=== PATIENT | female | born 1950 | race Caucasian/White ===

== ENCOUNTER 2024-05-05 23:21 | Inpatient (IN) | payer MEDICARE, BC ==
[~2024-05-05] VITALS: Ht 160 cm; Wt 93.0 kg
[2024-05-06] MEDS ORDERED: ONDANSETRON ODT 4 MG TAB.RAPDIS ONE (01:27)
[2024-05-06] MEDS ORDERED: HYDROMORPHONE 2 MG/1 ML DISP.SYRIN ONE ×2 (01:27→12:17)
[2024-05-06] MEDS ORDERED: CYCLOBENZAPRINE HCL 10 MG TABLET ONE (01:27)
[2024-05-06] MEDS: HYDROMORPHONE 1 MG/1 ML DISP.SYRIN IM ONE ×2 (01:31→07:29)
[2024-05-06] MEDS: ONDANSETRON ODT 4 MG TAB.RAPDIS SL ONE (01:32)
[2024-05-06] MEDS: CYCLOBENZAPRINE HCL 10 MG TABLET PO ONE (01:32)
[2024-05-06] MEDS ORDERED: HYDR-3980 PO (02:47)
[2024-05-06] MEDS ORDERED: CYCL10TA9 PO (02:47)
[2024-05-06] MEDS ORDERED: ONDA4TAB11 PO (02:47)
[2024-05-06] MEDS ORDERED: ICOS0.5C PO (07:18)
[2024-05-06] MEDS ORDERED: EMPA10TA PO (07:18)
[2024-05-06] MEDS ORDERED: ALLO100T PO (07:18)
[2024-05-06] MEDS ORDERED: METF-440 PO (07:18)
[2024-05-06] MEDS ORDERED: ASPI81TA31 PO (07:18)
[2024-05-06] MEDS ORDERED: SIMV10TA98 PO (07:18)
[2024-05-06] MEDS ORDERED: SEMA1PEN SQ (07:18)
[2024-05-06] MEDS ORDERED: FURO20TA4 PO (07:18)
[2024-05-06] MEDS ORDERED: IRBE300T19 PO (07:18)
[2024-05-06] MEDS ORDERED: HYDROMORPHONE 1 MG/1 ML DISP.SYRIN ONE (07:26)
[2024-05-06] MEDS ORDERED: ONDANSETRON 4 MG/2 ML VIAL ONE (12:17)
[2024-05-06] MEDS: HYDROMORPHONE 2 MG/1 ML DISP.SYRIN IV PRN (12:20)
[2024-05-06] MEDS: ONDANSETRON 4 MG/2 ML VIAL IV PRN (12:21)
[2024-05-06 12:47] LABS: BASOPHILS # (AUTO) 0.1 K/UL (0.0-0.2); BASOPHILS % (AUTO) 0.4 % (0.0-2.0); HEMATOCRIT 40.3 % (31.2-41.9); HEMOGLOBIN 13.3 g/dL (10.9-14.3); LYMPHOCYTES # (AUTO) 0.5 K/uL (0.8-4.8); LYMPHOCYTES % (AUTO) 3.4 % (20.5-51.5); MEAN CORPUSCULAR HEMOGLOBIN 27.8 uug (24.7-32.8); MEAN CORPUSCULAR HGB CONC 33 g/dL (32.3-35.6); MEAN CORPUSCULAR VOLUME 83.9 fL (75.5-95.3); MONOCYTES # (AUTO) 1.2 K/uL (0.1-1.30); MONOCYTES % (AUTO) 9.3 % (0.0-11.0); NEUTROPHILS # (AUTO) 11.6 K/uL (1.8-8.9); NEUTROPHILS % (AUTO) 86.9 % (38.5-71.5); PLATELET COUNT (AUTO) 197 K/uL (179-408); RED CELL DISTRIBUTION WIDTH 16.1 % (12.3-17.7); WHITE BLOOD COUNT (AUTO) 13.3 K/uL (3.8-11.8)
[2024-05-06 12:48] LABS: DIFFERENTIAL COMMENT 1
[2024-05-06 12:58] LABS: CALCIUM 9.4 mg/dL (8.5-10.1); CARBON DIOXIDE 25 mmol/L (21-32); CHLORIDE 102 mmol/L (98-107); CREATININE 1.3 mg/dL (0.6-1.3); GLUCOSE 159 mg/dL (74-106); POTASSIUM 4.3 mmol/L (3.5-5.1); SODIUM SERUM 137 mmol/L (136-145); UREA NITROGEN, BLOOD 33 mg/dL (7-18)
[2024-05-06 13:10] LABS: ALANINE AMINOTRANSFERASE 37 U/L (14-59); ALKALINE PHOSPHATASE 105 U/L (50-136); ASPARTATE AMINOTRANSFERASE 39 U/L (15-37); BILIRUBIN,TOTAL 1.4 mg/dL (0.2-1.0); NT-PRO BNP 1169 pg/mL (0-125); TOTAL PROTEIN, SERUM 7.7 g/dL (6.4-8.2)
[2024-05-06 13:14] LABS: ALBUMIN 2.7 g/dL (3.4-5.0); CREATINE KINASE, TOTAL 491 U/L (26-192)
[2024-05-06] MEDS ORDERED: TEMAZEPAM 15 MG CAPSULE PO PRN ×2 (15:30→15:45)
[2024-05-06] MEDS ORDERED: ONDANSETRON 4 MG/2 ML VIAL IV PRN (15:30)
[2024-05-06] MEDS: ACETAMINOPHEN 325 MG TABLET PO PRN (16:29)
[2024-05-06 16:31] VITALS: BP 155/77; TEMP 98; O2SAT 97
[2024-05-06] MEDS: HYDROCODONE/APAP 5-325MG TABLET PO PRN (17:20)
[2024-05-06 18:00] VITALS: O2SAT 96
[2024-05-06] MEDS ORDERED: ALBUTEROL SULFATE 2.5 MG/3 ML NEBU NEB PRN (19:15)
[2024-05-06] MEDS ORDERED: DEXTROSE 50% 50 ML DISP.SYRIN IV PRN (19:15)
[2024-05-06 20:08] VITALS: BP 125/59; TEMP 97.7; O2SAT 91
[2024-05-06] MEDS ORDERED: DOCUSATE SODIUM 250 MG CAPSULE PO SCH (21:00)
[2024-05-06] MEDS: SIMVASTATIN 10 MG TABLET PO SCH (21:40)
[2024-05-06] MEDS: DOCUSATE SODIUM 100 MG CAPSULE PO SCH (21:41)
[2024-05-06] MEDS: DEXAMETHASONE SOD PHOSPHATE 4 MG INJ IV SCH (23:02)
[2024-05-06] MEDS: CARISOPRODOL 350 MG TABLET PO SCH (23:20)
[2024-05-06] MEDS: BLOOD SUGAR DIAGNOSTIC 1 EACH STRIP VI SCH (23:50)
[2024-05-07] MEDS: INSULIN REGULAR, HUMAN 1000 UNIT/10 ML VIAL SQ PRN (00:30)
[2024-05-07 04:15] LABS: *BILIRUBIN,URIN 1+ (NEGATIVE); *BLOOD, URINE 3+ (NEGATIVE); *CLARITY,URINE CLOUDY (CLEAR); *COLOR,URINE DARK YELLOW (YELLOW); *KETONES,URINE NEGATIVE (NEGATIVE); *PROTEIN,URINE 3+ (NEGATIVE); *UROBILINOGEN,URINE 0.2 E.U./dl (NORMAL); LEUKOCYTE ESTERASE ,URINE NEGATIVE (NEGATIVE); NITRITE, URINE NEGATIVE (NEGATIVE); UGLUCOSE 3+ (NEGATIVE)
[2024-05-07 04:36] VITALS: BP 132/70; TEMP 97.6; O2SAT 92
[2024-05-07 04:36] LABS: RBC,URINE 20-50 /HPF (0-3); WBC,URINE 0-3 /HPF (0-3)
[2024-05-07 04:37] LABS: BACTERIA,URINE FEW /HPF (NONE SEEN); MUCUS,URINE FEW /LPF (0-FEW); SQUAMOUS EPITHELIAL CELL,UR FEW /HPF (NONE SEEN); URINE AMORPHOUS PHOSPHATES FEW /HPF
[2024-05-07] MEDS: PANTOPRAZOLE SODIUM 40 MG TABLET.DR PO SCH (06:27)
[2024-05-07] MEDS: MAGNESIUM HYDROXIDE 30 ML LIQUID UDC PO PRN (06:29)
[2024-05-07 07:45] LABS: BASOPHILS % (AUTO) 0.2 % (0.0-2.0); HEMATOCRIT 40.9 % (31.2-41.9); HEMOGLOBIN 13.5 g/dL (10.9-14.3); LYMPHOCYTES # (AUTO) 0.3 K/uL (0.8-4.8); LYMPHOCYTES % (AUTO) 2.4 % (20.5-51.5); MEAN CORPUSCULAR HEMOGLOBIN 27.9 uug (24.7-32.8); MEAN CORPUSCULAR HGB CONC 33 g/dL (32.3-35.6); MEAN CORPUSCULAR VOLUME 84.4 fL (75.5-95.3); MONOCYTES % (AUTO) 7.5 % (0.0-11.0); NEUTROPHILS # (AUTO) 11.6 K/uL (1.8-8.9); NEUTROPHILS % (AUTO) 89.9 % (38.5-71.5); PLATELET COUNT (AUTO) 191 K/uL (179-408); RED BLOOD CELL COUNT(AUTO) 4.85 MIL/uL (3.63-4.92); RED CELL DISTRIBUTION WIDTH 16.3 % (12.3-17.7); WHITE BLOOD COUNT (AUTO) 12.9 K/uL (3.8-11.8)
[2024-05-07 07:55] LABS: DIFFERENTIAL COMMENT 1
[2024-05-07 08:03] LABS: ALANINE AMINOTRANSFERASE 58 U/L (14-59); ALKALINE PHOSPHATASE 124 U/L (50-136); ASPARTATE AMINOTRANSFERASE 42 U/L (15-37); BILIRUBIN,TOTAL 1.6 mg/dL (0.2-1.0); CALCIUM 10.1 mg/dL (8.5-10.1); CARBON DIOXIDE 26 mmol/L (21-32); CHLORIDE 100 mmol/L (98-107); CREATININE 1.3 mg/dL (0.6-1.3); GLUCOSE 162 mg/dL (74-106); MAGNESIUM 2.8 mg/dL (1.8-2.4); PHOSPHOROUS 4.1 mg/dL (2.5-4.9); POTASSIUM 5.3 mmol/L (3.5-5.1); SODIUM SERUM 136 mmol/L (136-145); TOTAL PROTEIN, SERUM 8.2 g/dL (6.4-8.2); UREA NITROGEN, BLOOD 42 mg/dL (7-18); URIC ACID 6.2 mg/dL (2.6-6.0)
[2024-05-07 08:17] LABS: IRON, SERUM 15 ug/dL (50-175)
[2024-05-07] MEDS: FUROSEMIDE 20 MG TABLET PO SCH (08:20)
[2024-05-07] MEDS: ASPIRIN EC 81 MG TABLET.DR PO SCH (08:20)
[2024-05-07] MEDS: METFORMIN HCL 500 MG TABLET PO SCH (08:21)
[2024-05-07] MEDS: ENOXAPARIN SODIUM 30 MG/0.3 ML DISP.SYRIN SUBCUT SCH (08:28)
[2024-05-07] MEDS: ALLOPURINOL 100 MG TABLET PO SCH (08:33)
[2024-05-07 08:34] LABS: THYROID STIMULATING HORMONE 0.895 mIU/mL (0.358-3.740)
[2024-05-07] MEDS: HYDROMORPHONE 1 MG/1 ML DISP.SYRIN IV PRN (08:44)
[2024-05-07] MEDS ORDERED: ASPIRIN 81 MG TAB.CHEW PO SCH (09:00)
[2024-05-07] MEDS ORDERED: Medication Not On Formulary EA (Empagliflozin (Jardiance) 10 MG) PO SCH (09:00)
[2024-05-07] MEDS: EMPAGLIFLOZIN 10 MG TABLET PO SCH (09:46)
[2024-05-07 10:10] LABS: ALBUMIN 2.5 g/dL (3.4-5.0)
[2024-05-07 10:11] LABS: CREATINE KINASE, TOTAL 283 U/L (26-192)
[2024-05-07] MEDS ORDERED: SWABABLE VALVE TRANSFER SET EA MC ONE (11:18)
[2024-05-07] MEDS ORDERED: IV NORMAL SALINE 250 ML IV ONE (11:18)
[2024-05-07] MEDS ORDERED: IOHEXOL 350 100 ML INFUS..BTL ONE (11:18)
[2024-05-07 12:32] VITALS: BP 139/74; TEMP 97.3; O2SAT 92
[2024-05-07 16:00] VITALS: BP 153/83; TEMP 97.6; O2SAT 92
[2024-05-07] MEDS: FUROSEMIDE 20 MG/2 ML VIAL IV ONE (17:14)
[2024-05-08] MEDS ORDERED: METFORMIN HCL 500 MG TABLET PO SCH (12:00)
[2024-05-08] MEDS ORDERED: ENOX80DI SQ (18:08)
[2024-05-08] MEDS ORDERED: BRIM10DR6 OP (18:08)
[2024-05-08] MEDS ORDERED: BETA1TAB19 PO (18:08)
[2024-05-08] MEDS ORDERED: RXENO XX (18:08)
[2024-05-08] MEDS ORDERED: PIPE3.379 IV (18:08)
[2024-05-08] MEDS ORDERED: EMPA10TA PO (18:08)
[2024-05-08] MEDS ORDERED: BACL10TA PO (18:08)
[2024-05-08] MEDS ORDERED: ACET325T53 PO (18:08)
[2024-05-08] MEDS ORDERED: HYDR1DIS2 IV (18:08)
[2024-05-08] MEDS ORDERED: HYDR-3972 PO (18:08)
[2024-05-08] MEDS ORDERED: ALLO100T PO (18:08)
[2024-05-08] MEDS ORDERED: PANT40TA49 PO (18:08)
[2024-05-08] MEDS ORDERED: AMIODARONE DRIP IV (18:08)
[2024-05-08] MEDS ORDERED: RXVAN XX (18:08)
[2024-05-08] MEDS ORDERED: ONDA4VIA23 IV (18:08)
[2024-05-09] MEDS ORDERED: METFORMIN HCL 500 MG TABLET PO SCH (12:00)
== END 2024-05-07 18:00 | disposition short-term general hospital, planned readmission (82) | DRG 551 ==
LOC: ER 23:44 → TRANSITION 05-06 09:15 → MEDSURG3 05-06 13:29 → SA1 05-06 15:02 → MEDSURG1 05-06 16:22
PROVIDERS: ADMIT Internal Medicine; ATTEND Internal Medicine
DX: M51.16 Intervertebral disc disorders with radiculopathy, lumbar region (principal); N17.0 Acute kidney failure with tubular necrosis; E44.0 Moderate protein-calorie malnutrition; M62.82 Rhabdomyolysis; R17 Unspecified jaundice; M54.50 Low back pain, unspecified; M62.830 Muscle spasm of back; E88.09 Other disorders of plasma-protein metabolism, not elsewhere classified; E66.9 Obesity, unspecified; Z68.36 Body mass index [BMI] 36.0-36.9, adult; H35.30 Unspecified macular degeneration; L30.9 Dermatitis, unspecified; Z85.528 Personal history of other malignant neoplasm of kidney; M10.9 Gout, unspecified; E11.65 Type 2 diabetes mellitus with hyperglycemia; E78.5 Hyperlipidemia, unspecified; I10 Essential (primary) hypertension; R29.6 Repeated falls; Z90.710 Acquired absence of both cervix and uterus; Z96.651 Presence of right artificial knee joint; R10.30 Lower abdominal pain, unspecified; Z79.84 Long term (current) use of oral hypoglycemic drugs
CPT/HCPCS: 36415; 70450; 71045; 71275; 72100; 72131; 83550; 83735; 84100; 84443; 84484; 84550; 85025; 85610; 86140; 93005; 94760; A4606; A4663; G0378; J1100; J1171; J1650; J1815; J1940; J2405; J8499; Q0162; Q9967

== ENCOUNTER 2024-05-07 19:07 | Inpatient (IN) | payer MEDICARE, BC ==
[~2024-05-07] VITALS: Ht 160 cm; Wt 81.6 kg
[~2024-05-07 19:07] MED LIST: ALLO100T PO; ASPI81TA31 PO; EMPA10TA PO; FURO20TA4 PO; IRBE300T19 PO; METF-440 PO; SEMA1PEN SQ; SIMV10TA98 PO
[2024-05-07] MEDS ORDERED: ONDANSETRON 4 MG/2 ML VIAL ONE (19:55)
[2024-05-07] MEDS ORDERED: HYDROMORPHONE 1 MG/1 ML DISP.SYRIN ONE (19:56)
[2024-05-07] MEDS: ONDANSETRON 4 MG/2 ML VIAL IV ONE (19:59)
[2024-05-07] MEDS: HYDROMORPHONE 1 MG/1 ML DISP.SYRIN IV ONE (20:01)
[2024-05-07] MEDS: VANCOMYCIN HCL IV ONE (21:30)
[2024-05-07] MEDS: [UNRECOGNIZED DRUG - OTHER] IV ONE (21:30)
[2024-05-07] MEDS: IV NORMAL SALINE 500 ML IV ONE (22:00)
[2024-05-07] MEDS ORDERED: PIPERACILLIN SODIUM/TAZOBACTAM 3.375 G in IV DEXTROSE 5% 50 ML IV SCH (22:00)
[2024-05-07] MEDS ORDERED: PIPERACILLIN/TAZOBACTAM/D5W 50 ML IV ONE (22:16)
[2024-05-07] MEDS: PIPERACILLIN SODIUM/TAZOBACTAM 3.375 G in IV DEXTROSE 5% 50 ML IV ONE (22:18)
[2024-05-07] MEDS ORDERED: AMIODARONE HCL 150 MG/3 ML VIAL IV ONE ×2 (22:42→23:10)
[2024-05-07] MEDS: AMIODARONE HCL IV 150 MG in IV DEXTROSE 5% 100 ML IV ONE (22:48)
[2024-05-07] MEDS ORDERED: KETAMINE HCL 500 MG/5 ML VIAL ONE (22:51)
[2024-05-07] MEDS ORDERED: DILTIAZEM HCL 25 MG IV ONE (22:56)
[2024-05-07] MEDS: AMIODARONE HCL IV 450 MG in IV DEXTROSE 5% 250 ML IV PRN (23:56)
[2024-05-08] MEDS: KETAMINE HCL 500 MG/10 ML INJ IV ONE (00:01)
[2024-05-08] MEDS ORDERED: ENOXAPARIN SODIUM 80 MG/0.8 ML DISP.SYRIN SQ ONE (01:28)
[2024-05-08] MEDS: ENOXAPARIN SODIUM 80 MG/0.8 ML DISP.SYRIN SQ ONE (01:30)
[2024-05-08] MEDS ORDERED: VANCOMYCIN 1000 MG VIAL ONE (01:37)
[2024-05-08] MEDS ORDERED: VANCOMYCIN HCL 500 MG VIAL ONE (01:38)
[2024-05-08] MEDS: VANCOMYCIN HCL IV ONE (01:46)
[2024-05-08] MEDS: [UNRECOGNIZED DRUG - OTHER] IV ONE (01:46)
[2024-05-08 03:01] VITALS: BP 131/70; TEMP 99.2; O2SAT 93
[2024-05-08 04:32] VITALS: BP 133/59; TEMP 97.4; O2SAT 95
[2024-05-08] MEDS: HYDROCODONE/APAP 10-325 MG TABLET PO ONE (05:18)
[2024-05-08] MEDS: MAGNESIUM HYDROXIDE 30 ML LIQUID UDC PO ONE (05:18)
[2024-05-08] MEDS ORDERED: PIPERACILLIN/TAZOBACTAM/D5W 50 ML IV ONE (05:42)
[2024-05-08] MEDS: BACLOFEN 10 MG TABLET PO SCH (06:02)
[2024-05-08] MEDS: PIPERACILLIN SODIUM/TAZOBACTAM 3.375 G in IV DEXTROSE 5% 50 ML IV ONE (06:03)
[2024-05-08 06:51] LABS: BASOPHILS % (AUTO) 0.2 % (0.0-2.0); EOSINOPHILS % (AUTO) 0.1 % (0.0-7.0); HEMATOCRIT 38.4 % (31.2-41.9); HEMOGLOBIN 12.9 g/dL (10.9-14.3); LYMPHOCYTES # (AUTO) 0.3 K/uL (0.8-4.8); LYMPHOCYTES % (AUTO) 2.8 % (20.5-51.5); MEAN CORPUSCULAR HEMOGLOBIN 28.6 uug (24.7-32.8); MEAN CORPUSCULAR HGB CONC 34 g/dL (32.3-35.6); MEAN CORPUSCULAR VOLUME 84.9 fL (75.5-95.3); MONOCYTES % (AUTO) 0.4 % (0.0-11.0); NEUTROPHILS # (AUTO) 11.1 K/uL (1.8-8.9); NEUTROPHILS % (AUTO) 96.5 % (38.5-71.5); PLATELET COUNT (AUTO) 183 K/uL (179-408); RED BLOOD CELL COUNT(AUTO) 4.52 MIL/uL (3.63-4.92); RED CELL DISTRIBUTION WIDTH 16.4 % (12.3-17.7); WHITE BLOOD COUNT (AUTO) 11.5 K/uL (3.8-11.8)
[2024-05-08 07:11] LABS: DIFFERENTIAL COMMENT 1
[2024-05-08 07:14] LABS: ALANINE AMINOTRANSFERASE 93 U/L (14-59); ALBUMIN 1.9 g/dL (3.4-5.0); ALKALINE PHOSPHATASE 116 U/L (50-136); ASPARTATE AMINOTRANSFERASE 103 U/L (15-37); BILIRUBIN,TOTAL 1.5 mg/dL (0.2-1.0); CALCIUM 8.8 mg/dL (8.5-10.1); CARBON DIOXIDE 22 mmol/L (21-32); CHLORIDE 99 mmol/L (98-107); CREATININE 1.5 mg/dL (0.6-1.3); GLUCOSE 243 mg/dL (74-106); MAGNESIUM 2.7 mg/dL (1.8-2.4); PHOSPHOROUS 2.1 mg/dL (2.5-4.9); POTASSIUM 4.4 mmol/L (3.5-5.1); SODIUM SERUM 133 mmol/L (136-145); TOTAL PROTEIN, SERUM 6.9 g/dL (6.4-8.2); UREA NITROGEN, BLOOD 45 mg/dL (7-18)
[2024-05-08 07:34] LABS: LACTIC ACID 2.7 mmol/L (0.4-2.0)
[2024-05-08] MEDS ORDERED: PIPERACILLIN SODIUM/TAZOBACTAM 3.375 G in IV DEXTROSE 5% 50 ML IV SCH (08:30)
[2024-05-08 08:39] VITALS: BP 124/62; TEMP 97.7; O2SAT 92
[2024-05-08] MEDS ORDERED: ONDANSETRON 4 MG/2 ML VIAL IV PRN (08:45)
[2024-05-08] MEDS ORDERED: HYDROMORPHONE 1 MG/1 ML DISP.SYRIN IV PRN (08:45)
[2024-05-08] MEDS ORDERED: Medication Not On Formulary EA (Empagliflozin (Jardiance) 10 MG) PO SCH (09:00)
[2024-05-08] MEDS: ASPIRIN 81 MG TAB.CHEW PO SCH (09:00)
[2024-05-08] MEDS ORDERED: ALLOPURINOL 100 MG TABLET PO SCH (09:00)
[2024-05-08] MEDS: EMPAGLIFLOZIN 10 MG TABLET PO SCH (09:01)
[2024-05-08] MEDS: ALLOPURINOL 100 MG TABLET PO SCH (09:01)
[2024-05-08] MEDS: IV NS 1000 ML 1,000 ML IV PRN (10:23)
[2024-05-08] MEDS: BRIMONIDINE 0.2% OPHT DROP 10 ML BOTTLE OP SCH (12:31)
[2024-05-08] MEDS: BETA CAROTENE/VIT C & E/MIN TABLET PO SCH (12:33)
[2024-05-08] MEDS: HYDROCODONE/APAP 5-325MG TABLET PO PRN (13:33)
[2024-05-08] MEDS: PIPERACILLIN SODIUM/TAZOBACTAM 3.375 G in IV DEXTROSE 5% 50 ML IV SCH (13:45)
[2024-05-08 15:34] VITALS: TEMP 97.9
[2024-05-08] MEDS: CARISOPRODOL 350 MG TABLET PO PRN (16:31)
[2024-05-08] MEDS: NEUTRA PHOS PACKET PO ONE (16:49)
[2024-05-08] MEDS ORDERED: ENOX80DI SQ (18:08)
[2024-05-08] MEDS ORDERED: EMPA10TA PO (18:08)
[2024-05-08] MEDS ORDERED: HYDR-3972 PO (18:08)
[2024-05-08] MEDS ORDERED: BACL10TA PO (18:08)
[2024-05-08] MEDS ORDERED: PANT40TA49 PO (18:08)
[2024-05-08] MEDS ORDERED: HYDR1DIS2 IV (18:08)
[2024-05-08] MEDS ORDERED: AMIODARONE DRIP IV (18:08)
[2024-05-08] MEDS ORDERED: PIPE3.379 IV (18:08)
[2024-05-08] MEDS ORDERED: BRIM10DR6 OP (18:08)
[2024-05-08] MEDS ORDERED: ALLO100T PO (18:08)
[2024-05-08] MEDS ORDERED: ONDA4VIA23 IV (18:08)
[2024-05-08] MEDS ORDERED: RXENO XX (18:08)
[2024-05-08] MEDS ORDERED: ACET325T53 PO (18:08)
[2024-05-08] MEDS ORDERED: BETA1TAB19 PO (18:08)
[2024-05-08] MEDS ORDERED: RXVAN XX (18:08)
[2024-05-08 20:00] VITALS: BP_SYST 140; BP_SYST 176; BP_DIAS 70; BP_DIAS 76; TEMP 97.8; O2SAT 93
[2024-05-08] MEDS ORDERED: ALBUTEROL SULFATE 2.5 MG/ 0.5 ML NEBU NEB PRN (20:30)
[2024-05-08] MEDS: hydrALAZINE HCL 25 MG TABLET PO PRN (20:43)
[2024-05-08] MEDS: SIMVASTATIN 10 MG TABLET PO SCH (20:43)
[2024-05-08] MEDS: ENOXAPARIN SODIUM 80 MG/0.8 ML DISP.SYRIN SQ SCH (20:45)
[2024-05-08] MEDS: HYDROMORPHONE 1 MG/1 ML DISP.SYRIN IV PRN (22:50)
[2024-05-08] MEDS: MIRALAX 17 GM POWD.PACK PO PRN (22:50)
[2024-05-09] VITALS (8 sets, daily range): BP systolic 138–167; BP diastolic 64–89; TEMP 97.7–98.8; O2SAT 92–95
[2024-05-09] MEDS: PANTOPRAZOLE SODIUM 40 MG TABLET.DR PO SCH (06:37)
[2024-05-09 08:29] LABS: ABG BASE EXCESS -2.7 mmol/L (-2.0-3.0); ABG HCO3 19.2 mmol/L (21.0-28.0); ABG PCO2 26.5 mmHg (32.0-45.0); ABG PH 7.478 (7.350-7.450); ABG PO2 57.7 mmHg (83.0-108.0); ABG SITE RIGHT BRACHIAL; ABG TOTAL HEMOGLOBIN 14.2 G/dL (12.0-16.0); AaDO2 92.3 mmHg; COHb 1.3 % (0.5-1.5); O2Hb 89.8 % (94.0-98.0)
[2024-05-09 09:08] LABS: BASOPHILS % (AUTO) 0.2 % (0.0-2.0); EOSINOPHILS % (AUTO) 0.2 % (0.0-7.0); HEMATOCRIT 40.1 % (31.2-41.9); HEMOGLOBIN 12.8 g/dL (10.9-14.3); LYMPHOCYTES # (AUTO) 0.5 K/uL (0.8-4.8); MEAN CORPUSCULAR HEMOGLOBIN 27.5 uug (24.7-32.8); MEAN CORPUSCULAR HGB CONC 32 g/dL (32.3-35.6); MONOCYTES # (AUTO) 1.8 K/uL (0.1-1.30); MONOCYTES % (AUTO) 10.2 % (0.0-11.0); NEUTROPHILS # (AUTO) 15.2 K/uL (1.8-8.9); NEUTROPHILS % (AUTO) 86.4 % (38.5-71.5); PLATELET COUNT (AUTO) 219 K/uL (179-408); RED BLOOD CELL COUNT(AUTO) 4.66 MIL/uL (3.63-4.92); RED CELL DISTRIBUTION WIDTH 16.5 % (12.3-17.7); WHITE BLOOD COUNT (AUTO) 17.6 K/uL (3.8-11.8)
[2024-05-09 09:10] LABS: DIFFERENTIAL COMMENT 1
[2024-05-09] MEDS: AMIODARONE HCL 200 MG TABLET PO SCH (09:13)
[2024-05-09] MEDS: VALSARTAN 160 MG TABLET PO SCH (09:14)
[2024-05-09] MEDS: APIXABAN 2.5 MG TABLET PO SCH (09:15)
[2024-05-09] MEDS ORDERED: NALOXONE HCL 0.4 MG/ML AMPUL IV PRN (10:45)
[2024-05-09] MEDS: DIAZEPAM 10 MG/2 ML DISP.SYRIN IV ONE (10:50)
[2024-05-09] MEDS: OXYCODONE HCL 10 MG TAB.SR.12H PO SCH (11:00)
[2024-05-09 11:06] LABS: ALANINE AMINOTRANSFERASE 74 U/L (14-59); ALBUMIN 1.8 g/dL (3.4-5.0); ALKALINE PHOSPHATASE 116 U/L (50-136); ASPARTATE AMINOTRANSFERASE 68 U/L (15-37); BILIRUBIN,TOTAL 1.8 mg/dL (0.2-1.0); CALCIUM 8.9 mg/dL (8.5-10.1); CARBON DIOXIDE 18 mmol/L (21-32); CHLORIDE 99 mmol/L (98-107); CREATININE 0.8 mg/dL (0.6-1.3); GLUCOSE 153 mg/dL (74-106); MAGNESIUM 2.2 mg/dL (1.8-2.4); PHOSPHOROUS 2.7 mg/dL (2.5-4.9); POTASSIUM 3.7 mmol/L (3.5-5.1); SODIUM SERUM 135 mmol/L (136-145); TOTAL PROTEIN, SERUM 7.4 g/dL (6.4-8.2); UREA NITROGEN, BLOOD 30 mg/dL (7-18)
[2024-05-09 11:42] LABS: *BILIRUBIN,URIN NEGATIVE (NEGATIVE); *BLOOD, URINE 3+ (NEGATIVE); *CLARITY,URINE CLEAR (CLEAR); *COLOR,URINE YELLOW (YELLOW); *KETONES,URINE 1+ (NEGATIVE); *UROBILINOGEN,URINE 0.2 E.U./dl (NORMAL); LEUKOCYTE ESTERASE ,URINE NEGATIVE (NEGATIVE); NITRITE, URINE NEGATIVE (NEGATIVE); PH,URINE 5.5 (5.0-8.0)
[2024-05-09 12:31] LABS: *PROTEIN,URINE 3+ (NEGATIVE); UGLUCOSE 3+ (NEGATIVE)
[2024-05-09 12:50] LABS: BACTERIA,URINE MANY /HPF (NONE SEEN); RBC,URINE 80-100 /HPF (0-3); SQUAMOUS EPITHELIAL CELL,UR FEW /HPF (NONE SEEN)
[2024-05-09] MEDS: VANCOMYCIN IV 1,000 MG in IV DEXTROSE 5% 250 ML IV SCH ×2 (14:00→16:00)
[2024-05-09] MEDS ORDERED: AMIODARONE HCL 150 MG/3 ML VIAL IV ONE (23:04)
[2024-05-09] MEDS: AMIODARONE HCL IV 150 MG in IV DEXTROSE 5% 100 ML IV ONE (23:22)
[2024-05-09] MEDS: KETOROLAC TROMETHAMINE 15 MG INJ IVP ONE (23:47)
[2024-05-10] MEDS: AMIODARONE HCL IV 450 MG in IV DEXTROSE 5% 250 ML IV PRN (00:02)
[2024-05-10 00:04] VITALS: BP 118/68; TEMP 98.4; O2SAT 95
[2024-05-10] MEDS: HYDROMORPHONE 1 MG/1 ML DISP.SYRIN IV ONE (01:15)
[2024-05-10] MEDS ORDERED: ALBUTEROL SULFATE 2.5 MG/3 ML NEBU NEB PRN (05:15)
[2024-05-10 06:00] VITALS: BP 147/80; TEMP 97.6; O2SAT 95
[2024-05-10 07:36] VITALS: BP 125/51; TEMP 97.7; O2SAT 94
[2024-05-10 08:02] LABS: BASOPHILS # (AUTO) 0.1 K/UL (0.0-0.2); BASOPHILS % (AUTO) 0.4 % (0.0-2.0); EOSINOPHILS # (AUTO) 0.1 K/uL (0.0-0.7); EOSINOPHILS % (AUTO) 0.3 % (0.0-7.0); HEMATOCRIT 38.5 % (31.2-41.9); HEMOGLOBIN 12.8 g/dL (10.9-14.3); LYMPHOCYTES # (AUTO) 0.9 K/uL (0.8-4.8); LYMPHOCYTES % (AUTO) 4.6 % (20.5-51.5); MEAN CORPUSCULAR HEMOGLOBIN 27.6 uug (24.7-32.8); MEAN CORPUSCULAR HGB CONC 33 g/dL (32.3-35.6); MEAN CORPUSCULAR VOLUME 82.9 fL (75.5-95.3); MONOCYTES # (AUTO) 1.3 K/uL (0.1-1.30); MONOCYTES % (AUTO) 6.7 % (0.0-11.0); NEUTROPHILS # (AUTO) 17.6 K/uL (1.8-8.9); PLATELET COUNT (AUTO) 274 K/uL (179-408); RED BLOOD CELL COUNT(AUTO) 4.64 MIL/uL (3.63-4.92)
[2024-05-10 08:06] LABS: ALANINE AMINOTRANSFERASE 72 U/L (14-59); ALBUMIN 1.6 g/dL (3.4-5.0); ALKALINE PHOSPHATASE 114 U/L (50-136); ASPARTATE AMINOTRANSFERASE 40 U/L (15-37); BILIRUBIN,DIRECT 1.2 mg/dL (0.0-0.2); BILIRUBIN,TOTAL 1.7 mg/dL (0.2-1.0); CALCIUM 9.3 mg/dL (8.5-10.1); CARBON DIOXIDE 26 mmol/L (21-32); CHLORIDE 101 mmol/L (98-107); GLUCOSE 196 mg/dL (74-106); MAGNESIUM 2.3 mg/dL (1.8-2.4); PHOSPHOROUS 3.7 mg/dL (2.5-4.9); POTASSIUM 3.1 mmol/L (3.5-5.1); SODIUM SERUM 138 mmol/L (136-145); TOTAL PROTEIN, SERUM 6.9 g/dL (6.4-8.2); UREA NITROGEN, BLOOD 32 mg/dL (7-18)
[2024-05-10 08:13] LABS: DIFFERENTIAL COMMENT 1
[2024-05-10 08:32] LABS: C-REACTIVE PROTEIN 30.76 mg/dL (0.00-0.30)
[2024-05-10 08:36] LABS: CREATINE KINASE, TOTAL 168 U/L (26-192)
[2024-05-10] MEDS ORDERED: APIXABAN 2.5 MG TABLET PO SCH (09:00)
[2024-05-10] MEDS: APIXABAN 5 MG TABLET PO SCH (09:03)
[2024-05-10] MEDS: POTASSIUM CHLORIDE 50 ML IV SCH (09:04)
[2024-05-10] MEDS ORDERED: DEXTROSE 50% 50 ML DISP.SYRIN IV PRN (09:15)
[2024-05-10] MEDS ORDERED: POTASSIUM CHLORIDE 20 MEQ TAB.PRT.SR PO ONE (09:15)
[2024-05-10] MEDS: DILTIAZEM HCL 25 MG IV IV ONE (10:36)
[2024-05-10 11:28] LABS: BAND % (MANUAL) 7 % (0-10); LYMPHOCYTES % (MANUAL) 5 % (20-40); NEUTROPHILS % (MANUAL) 76 % (42-75)
[2024-05-10 11:29] LABS: METAMYELOCYTES % 2 % (0-1); MONOCYTES % (MANUAL) 9 % (2-10); MYELOCYTES % 1 % (0-0); PLATELET ESTIMATE ADEQUATE
[2024-05-10 11:36] VITALS: BP 114/76; TEMP 98.8; O2SAT 94
[2024-05-10] MEDS: BLOOD SUGAR DIAGNOSTIC 1 EACH STRIP VI SCH (12:37)
[2024-05-10] MEDS: FUROSEMIDE 20 MG/2 ML VIAL IV ONE (12:38)
[2024-05-10] MEDS: PIPERACILLIN SODIUM/TAZOBACTAM 3.375 G in IV DEXTROSE 5% 50 ML IV SCH (12:38)
[2024-05-10] MEDS: INSULIN REGULAR, HUMAN 1000 UNIT/10 ML VIAL SQ PRN (12:45)
[2024-05-10] MEDS: ALBUMIN HUMAN 25% 100 ML IV ONE (13:41)
[2024-05-10 16:00] VITALS: BP 102/64; TEMP 98; O2SAT 95
[2024-05-10] MEDS: ACETAMINOPHEN 325 MG TABLET PO PRN (16:03)
[2024-05-10 19:30] VITALS: BP 107/47; TEMP 97.1; O2SAT 97
[2024-05-10] MEDS: HYDROMORPHONE HCL 2 MG TABLET PO PRN (22:45)
[2024-05-10] MEDS ORDERED: NALOXONE HCL 0.4 MG/ML AMPUL IV PRN (23:30)
[2024-05-11] VITALS: BP 133/82; TEMP 98.3; O2SAT 99
[2024-05-11 04:00] VITALS: BP 114/66; TEMP 98.3; O2SAT 98
[2024-05-11] MEDS: OXYCODONE HCL 10 MG TAB.SR.12H PO SCH (05:24)
[2024-05-11] MEDS ORDERED: REMEDY ESSENTIAL ZINC PASTE 113 GM TOP PRN (07:15)
[2024-05-11 08:00] VITALS: BP 101/68; TEMP 97.2; O2SAT 97
[2024-05-11] MEDS: REMEDY ESSENTIAL ZINC PASTE 113 GM TOP SCH (08:18)
[2024-05-11] MEDS: LIDOCAINE 5% PATCH TD SCH (08:21)
[2024-05-11] MEDS: CLOTRIMAZOLE 1% CREAM 30 GM TUBE TOP SCH (08:22)
[2024-05-11] MEDS: METOPROLOL TARTRATE 50 MG TABLET PO SCH (10:21)
[2024-05-11 12:00] VITALS: BP 105/54; TEMP 97.8; O2SAT 97
[2024-05-11 16:00] VITALS: BP 139/71; TEMP 97.8; O2SAT 97
[2024-05-11] MEDS: VANCOMYCIN IV 1,000 MG in IV DEXTROSE 5% 250 ML IV SCH (18:19)
[2024-05-11 19:00] VITALS: BP 99/65; TEMP 98.6; O2SAT 96
[2024-05-11] MEDS: GABAPENTIN 100 MG CAPSULE PO SCH (22:39)
[2024-05-12] VITALS (7 sets, daily range): BP systolic 96–130; BP diastolic 49–72; TEMP 97.7–98.5; O2SAT 93–96
[2024-05-12 07:09] LABS: BASOPHILS # (AUTO) 0.1 K/UL (0.0-0.2); BASOPHILS % (AUTO) 0.3 % (0.0-2.0); EOSINOPHILS # (AUTO) 0.1 K/uL (0.0-0.7); EOSINOPHILS % (AUTO) 0.7 % (0.0-7.0); HEMATOCRIT 34.4 % (31.2-41.9); HEMOGLOBIN 11.3 g/dL (10.9-14.3); LYMPHOCYTES # (AUTO) 1.3 K/uL (0.8-4.8); LYMPHOCYTES % (AUTO) 6.5 % (20.5-51.5); MEAN CORPUSCULAR HEMOGLOBIN 27.8 uug (24.7-32.8); MEAN CORPUSCULAR HGB CONC 33 g/dL (32.3-35.6); MEAN CORPUSCULAR VOLUME 84.5 fL (75.5-95.3); MONOCYTES # (AUTO) 0.8 K/uL (0.1-1.30); MONOCYTES % (AUTO) 4.2 % (0.0-11.0); NEUTROPHILS # (AUTO) 17.7 K/uL (1.8-8.9); NEUTROPHILS % (AUTO) 88.3 % (38.5-71.5); PLATELET COUNT (AUTO) 303 K/uL (179-408); RED BLOOD CELL COUNT(AUTO) 4.07 MIL/uL (3.63-4.92); RED CELL DISTRIBUTION WIDTH 16.3 % (12.3-17.7)
[2024-05-12 07:34] LABS: DIFFERENTIAL COMMENT 1
[2024-05-12 07:39] LABS: CALCIUM 8.1 mg/dL (8.5-10.1); CARBON DIOXIDE 26 mmol/L (21-32); CHLORIDE 95 mmol/L (98-107); CREATININE 0.8 mg/dL (0.6-1.3); GLUCOSE 380 mg/dL (74-106); POTASSIUM 3.1 mmol/L (3.5-5.1); SODIUM SERUM 130 mmol/L (136-145); UREA NITROGEN, BLOOD 18 mg/dL (7-18)
[2024-05-12 08:08] LABS: C-REACTIVE PROTEIN 11.77 mg/dL (0.00-0.30)
[2024-05-12] MEDS: POTASSIUM CHLORIDE 20 MEQ TAB.PRT.SR PO ONE (09:41)
[2024-05-12] MEDS ORDERED: DILTIAZEM HCL 30 MG TABLET PO SCH (10:00)
[2024-05-12] MEDS: DILTIAZEM HCL 30 MG TABLET PO SCH (10:45)
[2024-05-12] MEDS: FUROSEMIDE 40 MG/4 ML VIAL IV ONE (10:46)
[2024-05-12] MEDS: METOPROLOL TARTRATE 50 MG TABLET PO ONE (10:46)
[2024-05-12 12:28] LABS: EOSINOPHILS % (MANUAL) 1 % (0-8); LYMPHOCYTES % (MANUAL) 7 % (20-40); MONOCYTES % (MANUAL) 4 % (2-10); NEUTROPHILS % (MANUAL) 88 % (42-75); PLATELET ESTIMATE ADEQUATE
[2024-05-12] MEDS: METOPROLOL TARTRATE 50 MG TABLET PO SCH (20:57)
[2024-05-13 07:10] LABS: BASOPHILS # (AUTO) 0.1 K/UL (0.0-0.2); BASOPHILS % (AUTO) 0.3 % (0.0-2.0); EOSINOPHILS # (AUTO) 0.2 K/uL (0.0-0.7); EOSINOPHILS % (AUTO) 0.8 % (0.0-7.0); HEMATOCRIT 33.7 % (31.2-41.9); HEMOGLOBIN 11.2 g/dL (10.9-14.3); LYMPHOCYTES # (AUTO) 1.4 K/uL (0.8-4.8); LYMPHOCYTES % (AUTO) 5.9 % (20.5-51.5); MEAN CORPUSCULAR HEMOGLOBIN 27.5 uug (24.7-32.8); MEAN CORPUSCULAR HGB CONC 33 g/dL (32.3-35.6); MEAN CORPUSCULAR VOLUME 82.5 fL (75.5-95.3); NEUTROPHILS # (AUTO) 21.6 K/uL (1.8-8.9); PLATELET COUNT (AUTO) 325 K/uL (179-408); RED BLOOD CELL COUNT(AUTO) 4.09 MIL/uL (3.63-4.92); RED CELL DISTRIBUTION WIDTH 16.4 % (12.3-17.7); WHITE BLOOD COUNT (AUTO) 24.3 K/uL (3.8-11.8)
[2024-05-13 07:19] LABS: CARBON DIOXIDE 24 mmol/L (21-32); CHLORIDE 102 mmol/L (98-107); CREATININE 0.9 mg/dL (0.6-1.3); GLUCOSE 150 mg/dL (74-106); MAGNESIUM 2.2 mg/dL (1.8-2.4); PHOSPHOROUS 3.8 mg/dL (2.5-4.9); POTASSIUM 3.7 mmol/L (3.5-5.1); SODIUM SERUM 138 mmol/L (136-145); UREA NITROGEN, BLOOD 24 mg/dL (7-18)
[2024-05-13 07:47] LABS: DIFFERENTIAL COMMENT 1
[2024-05-13 07:48] VITALS: BP 111/62; TEMP 98.6; O2SAT 95
[2024-05-13 11:20] VITALS: BP 105/57; TEMP 98.1; O2SAT 94
[2024-05-13] MEDS ORDERED: CEFAZOLIN 1 G VIAL IM SCH (11:30)
[2024-05-13 11:33] LABS: LYMPHOCYTES % (MANUAL) 6 % (20-40); NEUTROPHILS % (MANUAL) 77 % (42-75)
[2024-05-13 11:34] LABS: EOSINOPHILS % (MANUAL) 1 % (0-8); METAMYELOCYTES % 4 % (0-1); MONOCYTES % (MANUAL) 8 % (2-10); MYELOCYTES % 4 % (0-0); PLATELET ESTIMATE ADEQUATE
[2024-05-13] MEDS: CEFAZOLIN 2 G in IV DEXTROSE 5% 100 ML IV SCH (14:40)
[2024-05-13] MEDS ORDERED: LIDOCAINE HCL 1% 20 ML VIAL IJ PRN (15:30)
[2024-05-13] MEDS ORDERED: TRIAMCINOLONE ACETONIDE 40 MG/1 ML VIAL IM ONE (15:30)
[2024-05-13 15:43] VITALS: BP 115/68; TEMP 98.2; O2SAT 95
[2024-05-13 17:15] VITALS: O2SAT 94
== END 2024-05-13 18:00 | disposition short-term general hospital (02) | DRG 871 ==
LOC: ER 19:07 → TELE3 05-08 02:15 → TELE-TD3 05-08 02:16
PROVIDERS: ADMIT Internal Medicine; ATTEND Internal Medicine
PROC: 5A2204Z Restoration of Cardiac Rhythm, Single (ICD-10-PCS; principal; 2024-05-08)
PROC: 05HC33Z Insertion of Infusion Device into Left Basilic Vein, Percutaneous Approach (ICD-10-PCS; 2024-05-08)
PROC: 02HV33Z Insertion of Infusion Device into Superior Vena Cava, Percutaneous Approach (ICD-10-PCS; 2024-05-09)
DX: A41.01 Sepsis due to Methicillin susceptible Staphylococcus aureus (principal); I21.A1 Myocardial infarction type 2; I50.31 Acute diastolic (congestive) heart failure; N17.0 Acute kidney failure with tubular necrosis; J96.01 Acute respiratory failure with hypoxia; E44.0 Moderate protein-calorie malnutrition; M62.82 Rhabdomyolysis; E87.20 Acidosis, unspecified; J98.11 Atelectasis; M46.46 Discitis, unspecified, lumbar region; I48.0 Paroxysmal atrial fibrillation; E88.09 Other disorders of plasma-protein metabolism, not elsewhere classified; E66.9 Obesity, unspecified; Z68.31 Body mass index [BMI] 31.0-31.9, adult; M10.9 Gout, unspecified; H35.30 Unspecified macular degeneration; L30.9 Dermatitis, unspecified; M51.16 Intervertebral disc disorders with radiculopathy, lumbar region; E78.5 Hyperlipidemia, unspecified; I11.0 Hypertensive heart disease with heart failure; E11.65 Type 2 diabetes mellitus with hyperglycemia; R29.6 Repeated falls; E80.4 Gilbert syndrome; Z85.528 Personal history of other malignant neoplasm of kidney
CPT/HCPCS: 36415; 36600; 70030-TC; 70450; 71045; 82803; 83605; 83735; 84100; 84484; 85025; 86140; 87040; 87077; 93307; 94760; A4606; A4663; A6209; A6213; G0378; J0282; J0690; J1171; J1650; J1815; J1885; J1940; J2405; J2543; J3360; J3370; J3371; J3480; J3490; J7040; J7050; J8499; P9047